=== PATIENT | female | born 1995 | race Asian ===

== ENCOUNTER 2024-12-23 00:14 | Emergency (ER) | payer MEDICAID, SELFPAY ==
[2024-12-23 00:17] VITALS: BMI 22.2
[2024-12-23 00:29] VITALS: BP 125/88; PULSE 104; RESP 20; TEMP 37.3; O2SAT 95
--- NOTE | 2024-12-23 00:32 | PD.EDRME ---
Rapid Medical Screening Exam RME Arrival date/time: 12/23/24 00:14 29 yo f present to ED for c/o nausea,vomiting, cough, weakness for 6 days I have greeted and performed a focused initial assessment of this patient. A comprehensive ED assessment and evaluation of the patient, analysis of all test results, and completion of the medical decision making process will be conducted by additional ED providers. Chief Complaint: Nausea/Vomiting/Diarrhea Time Seen by Provider: 12/23/24 00:19 Vital signs: Vital Signs Temperature 99.1 F 12/23/24 00:29 Pulse Rate 104 H 12/23/24 00:29 Respiratory Rate 20 12/23/24 00:29 Blood Pressure 125/88 H 12/23/24 00:29 Pulse Oximetry (%) 95 12/23/24 00:29 Oxygen Delivery Method Room Air 12/23/24 00:29
[2024-12-23] MEDS: MG HYD/AL HYD/SIME (Maalox Reg) SUSP 30 ML UDC PO (00:46)
[2024-12-23] MEDS: ONDANSETRON ODT 4 MG TABRAP PO (00:46)
[2024-12-23 01:11] LABS: Collection Type, Urine Voided
[2024-12-23 01:13] LABS: Basophils % (Auto) 0 % (0-2.5); Eosinophils # (Auto) 0.1 Thou/mm3 (0.0-0.5); Eosinophils % (Auto) 1 % (0-10); Hematocrit 33.7 % (36.0-46.0); Hemoglobin 10.6 g/dL (12.0-16.0); Immature Granulocytes % (Auto) 0 % (0-0); Immature Granulocytes Auto 0.05 Thou/mm3 (0.00-0.00); Lymphocytes # (Auto) 2.7 Thou/mm3 (1.0-4.8); Lymphocytes % (Auto) 21 % (10-50); Mean Corpuscular HGB Conc 31.5 g/dl (31.0-37.0); Mean Corpuscular Hemoglobin 19.3 pg (25.0-35.0); Mean Corpuscular Volume 61 fL (80-100); Monocytes # (Auto) 0.6 Thou/mm3 (0.0-0.8); Monocytes % (Auto) 4 % (0-12); Neutrophils # (Auto) 9.6 Thou/mm3 (1.8-7.7); Neutrophils % (Auto) 74 % (37-80); Nucleated Red Blood Cell % 0 /100 WBC (0); Platelet Count 326 Thou/mm3 (140-440); RDW Standard Deviation 32.3 fL (36.4-46.3); Red Blood Count 5.49 Miln/mm3 (4.00-5.20)
[2024-12-23 01:19] LABS: Bilirubin,Urine Negative (Negative); Blood,Urine Negative (Negative); Clarity,Urine Clear (Clear/Hazy); Color,Urine Yellow (Lt Yel-Yel); Glucose, Urine Negative (Negative); Hyaline Casts,Urine < 1 /hpf (0-1); Ketones,Urine 1+ (Negative); Leukocyte Esterase,Urine Negative (Negative); Nitrite,Urine Negative (Negative); Protein,Urine Trace (Neg - Trace); RBC,Urine 3 /hpf (0-3); Specific Gravity,Urine 1.023 (1.001-1.035); Squamous Epithelial Cell,Urine 5 /hpf (0-5); Urobilinogen,Urine Negative mg/dL (0.0-1.0); WBC,Urine 2 /hpf (0-5)
[2024-12-23 01:28] LABS: HCG,Qualitative Serum Positive
[2024-12-23 01:42] LABS: Strep A Rapid Negative (Negative)
[2024-12-23 01:44] LABS: Albumin, Serum 4.4 gm/dL (3.5-5.0); Albumin/Globulin Ratio 1.3 (1.2-2.2); Alkaline Phosphatase 53 U/L (46-116); Anion Gap 10 (7-16); Aspartate Amino Transferase 12 U/L (0-34); BUN/Creatinine Ratio 12 Ratio (12-20); Bilirubin,Total 0.4 mg/dL (0.3-1.2); Blood Urea Nitrogen 6 mg/dL (9-23); Calcium 9.4 mg/dL (8.3-10.6); Calcium (Corrected) 9.4 mg/dL (8.5-10.1); Carbon Dioxide 23.2 mMol/L (20.0-31.0); Chloride 104 mMol/L (98-107); Creatinine (Component) 0.5 mg/dL (0.6-1.3); Estimated Creatinine Clearance 139.8 mL/min (>60); Globulin 3.4 gm/dL (2.3-3.5); Glucose 101 mg/dL (74-106); Osmolality,Calculated 271 (275-295); Potassium 3.7 mMol/L (3.4-5.1); Sodium 137 mMol/L (136-145); Total Protein 7.8 gm/dL (5.7-8.2); eGFR > 60 See Note
[2024-12-23 01:50] LABS: Alanine Aminotransferase 8 U/L (10-49)
[2024-12-23 02:35] LABS: Path Review Blood Smear Sent to Pathologist
[2024-12-23 03:05] VITALS: BP 106/71; PULSE 74; RESP 18; TEMP 37; O2SAT 99
[2024-12-23 03:14] LABS: Mono Screen Negative (Negative)
--- NOTE | 2024-12-23 03:28 | XR_ITS ---
Examination: Complete OB ultrasound, less than 14 weeks, transabdominal Date and time of exam: December 23, 2024 0337 hrs. Indications: Vomiting beginning 6 days ago, early by history Technique: Obstetrical ultrasound images less than 14 weeks performed via transabdominal imaging Findings: A normal shaped single intrauterine gestation is present in the uterus. pole 3.4 cm corresponds to 10 weeks 2 days gestational age Cardiac motion 169 bpm Ultrasonographic survey of visible and placental structures unremarkable. Amniotic fluid volume appears appropriate for this estimated gestational age. Right ovary obscured by bowel gas Left ovary 3.3 cm arterial flow Impression: Viable intrauterine gestation 10 weeks 2 days.
[2024-12-23 04:41] LABS: Beta HCG,Quantitative 142283 mIU/mL (<5.0)
--- NOTE | 2024-12-23 04:56 | PD.EDNV ---
Nausea/Vomit./Diarrhea-RME/HPI General Chief complaint: Nausea/Vomiting/Diarrhea Stated complaint: 8 WKS PREG NV Time Seen by Provider: 12/23/24 00:19 Arrival date/time: 12/23/24 00:14 29 year old female present to emergency room with c/o nausea,vomiting cough and weakness for 6 days. pt is currently 8 weeks . LOCATION: generalized periumbical abdominal pain SEVERITY: Symptoms are described as being severe with limitations on activities of daily living QUALITY: Symptoms are described as being cramping CONTEXT: The patient is unable to identify any inciting events. DURATION/TIMING: The symptoms started approximately 6 day ago and have been constant this then, and have been progressive getting worse. ASSOCIATED SYMPTOMS: The patient is unable to identify any other associated symptoms. MODIFYING FACTORS: The patient is unable to identify any alleviating or aggravating symptoms. PERTINENT ROS: reports emesis is nonbloody, diarrhea is nonbloody, no recent foreign travel, no recent ingestion of raw seafood or meat, no head trauma, no headache, no chest pain, no orthostatis symptoms, denies any focal abdominal pain, denies any toxicological ingestions REVIEW OF SYSTEMS: See History of Present Illness - with the exception of those mentioned in the history of present illness, all other systems reviewed and reported as negative GENERAL: In general the patient is awake, interactive, in an emergency department gurney. HEAD/EYES/EARS/NOSE/THROAT: normo-cephalic, atraumatic, mucus membranes are moist, anicteric, palpebral conjunctiva is pink, trachea is midline. CARDIOVASCULAR: regular rate and regular rhythm, no murmurs, heart sounds are not distant, strong pulses in all four extremities that are equal and symmetric bilateral upper and lower extremities, normal capillary refill. CHEST/PULMONARY: normal chest rise and fall, good air movement, clear to auscultation bilaterally, normal inspiratory to expiratory ratios without evidence of respiratory distress. NECK: No midline/Paraspinal tenderness, no step off ROM/Strenght intact No Kernig and bruzinski sign. No trauma ABDOMEN: soft, not tender, no masses appreciated BACK: normal range of motion without pain. NEUROLOGICAL: cranio-facial features are symmetric, moves all four extremities equally without obvious limitations or weakness. EXTREMITY: no tenderness to palpation over the long bones or large joints of the bilateral upper and lower extremities, no joint swelling, no joint erythema, no signs of trauma, no unilateral leg swelling and no peripheral edema. SKIN: warm, dry, well-perfused, no jaundice, no rash, no telangiectasias or petechia. PSYCH: calm, cooperative, no evidence of psychosis or agitation RME / HPI RME / HPI Narrative: 12/23/24 00:14 29 yo f present to ED for c/o nausea,vomiting, cough, weakness for 6 days I have greeted and performed a focused initial assessment of this patient. A comprehensive ED assessment and evaluation of the patient, analysis of all test results, and completion of the medical decision making process will be conducted by additional ED providers. Related Data Previous Rx's ?Medication ?Instructions ?Recorded metoclopramide HCl 10 mg tablet 10 mg PO Q6H PRN nausea and 12/23/24 (Reglan) vomiting #20 tabs Allergies Allergy/AdvReac Type Severity Reaction Status Date / Time No Known Allergies Allergy Verified 12/23/24 00:20 Course Course Course Narrative: This patient presents with weakness, nausea, cough,? first trimester. DDX includes ectopic, IUP, threatened/inevitable , dehydration, mono, strep, UTI along with completed . Patient is HDS and without a history of coagulopathy or infectious symptoms. Doubt alternate acute emergent pathology. Plan: C, +/- basic labs, type and screen, TVUS, reassess Quality Measures none Orders Category Date Time Status Bedside Influenza A&B Antigen Test NOW Care 12/23/24 00:33 Completed US OB <= 14 weeks fetus Stat Exams 12/23/24 03:28 Taken Beta HCG,Quantitative Stat Lab 12/23/24 00:00 Completed CBC Stat Lab 12/23/24 00:53 Completed CMP [Comprehensive Metabolic Panel] Stat Lab 12/23/24 00:53 Completed HCG,Qualitative Serum Stat Lab 12/23/24 00:53 Completed [place] Screen Stat Lab 12/23/24 00:53 Completed Path Review Blood Smear Stat Lab 12/23/24 00:53 Completed Strep A Rapid Stat Lab 12/23/24 00:43 Completed UA [Urinalysis] Stat Lab 12/23/24 00:45 Completed Ondansetron Odt [Zofran Odt] Med 12/23/24 00:34 Discontinued 4 mg PO X1 ONE mg Hyd/Al Hyd/Lucie Susp [Maalox Susp] Med 12/23/24 00:34 Discontinued 30 ml PO X1 ONE Vital Signs Vital signs: Vital Signs Temperature 99.1 F 12/23/24 00:29 Pulse Rate 104 H 12/23/24 00:29 Respiratory Rate 20 12/23/24 00:29 Blood Pressure 125/88 H 12/23/24 00:29 Pulse Oximetry (%) 95 12/23/24 00:29 Oxygen Delivery Method Room Air 12/23/24 00:29 Nausea/Vomiting/Diarrhea Patient data External records reviewed:: [facility] previous records Clinical information provided by:: patient Social determinants that could affect healthcare access:: none Patient has the following chronic illnesses:: n/a How is presenting disease/condition affected by chronic disease/condition?: no chronic disease Evaluation data The following diagnostics were reviewed and interpreted by me:: lab results and radiology exam(s) Lab and/or radiology exams considered but not ordered:: n/a Interpretation Summary: cbc/cmp wnl strep/mono/flu negaative us: 10 weeks IUP 169 HR Medications / Prescriptions Medications / Prescriptions considered but not ordered:: n/a Medication administrations:: Medication Administration History Discontinued Medications Al Hydrox/Mg Hydrox/Simethicone (Mg Hyd/Al Hyd/Lucie (Maalox Reg) Susp 30 Ml Udc) 30 ml PO X1 ONE Stop: 12/23/24 00:35 Last Admin: 12/23/24 00:46 Dose: 30 ml Documented By: RUPERTO Ondansetron HCl (Ondansetron Odt 4 Mg Tabrap) 4 mg PO X1 ONE; Protocol Stop: 12/23/24 00:35 Last Admin: 12/23/24 00:46 Dose: 4 mg Documented By: RUPERTO as stated above Consultations Consultation(s) initiated? (list below): No Diagnosis Nausea Differential Diagnosis: gastroenteritis, dehydration and other (UTI, , URI , anemia ) Most likely diagnosis given after review of the tests above:: , URI Admission Indicated Admission indicated?: not indicated Admission Request Was there a request for admission?: No Disposition Plan Disposition Plan: Discharge Discharge Attestation Discharge Attestation: The patient and all family members were given an opportunity to ask questions and understood the discharge instructions. Discharge instructions specifically effects, indications for sooner follow up or return to the emergency department, and the expected course of current diagnosis. Patient condition: Stable Discharge Plan Plan Patient Disposition: HOME (Self Care) Prescriptions/Referrals Prescriptions/Med Rec: New metoclopramide HCl [Reglan] 10 mg tablet 10 mg PO Q6H PRN (Reason: nausea and vomiting) Qty: 20 0RF Referrals: No Primary/Family,Physician [Primary Care Provider] - In 1 week Problem List Clinical Impression: Patient/Caregiver Discharge Instructions Education Materials: First Trimester Print Language: Kittitian Stand Alone Forms: Mallorie Award Info., Patient Portal Info Letter
--- NOTE | 2024-12-23 05:37 | PRELIM_ITS ---
Obstetric ultrasound (transabdominal ) with doppler and wave doppler spectral analysis. December 23, 2024 at 0337 hours Clinical history: Abdominal pain 8 weeks . Technique: Real-time ultrasound was performed using Duplex scanning including arterial inflow, venous outflow, color and spectral Doppler analysis of both ovaries. Comparison: No prior study is available for comparison. Findings: There is an intrauterine gestation with a single live fetus of mean gestational age 10 weeks and 2 days (CRL= 3.4 cm). cardiac activity is present at heart rate of 109 beats per minute. The yolk sac is visualized. The uterus measures 9.8 x 7.6 x 10.1 cm. The right ovary was not visualized. The left ovary measures 3.3 x 1.5 x 2.0 cm and is unremarkable. Normal blood flow in the left ovary with normal wave Doppler spectral analysis. There is no free fluid in the pelvis. No abnormalities detected by Doppler. Impression: Intrauterine gestation with a single live fetus of mean gestational age 10 weeks and 2 days. Report Electronically Signed By: Juan Green 12/23/2024 5:36:23 AM [EST]
== END 2024-12-23 05:25 | disposition home or self-care (01) ==
PROVIDERS: Physician Assistant; Emergency Provider Emergency Medicine
DX: O21.9 Vomiting of pregnancy, unspecified (principal); Z3A.10 10 weeks gestation of pregnancy; O26.891 Other specified pregnancy related conditions, first trimester; Z3A.08 8 weeks gestation of pregnancy; R05.9 Cough, unspecified; R10.84 Generalized abdominal pain; R53.1 Weakness
CPT/HCPCS: 36415; 76801; 80053; 81001; 84702; 84703; 85025; 86308; 87400; 87651; 99284; Q0162; A9270

== ENCOUNTER 2025-05-23 14:27 | Outpatient (AMB) | payer MEDICAID, SELFPAY ==
[2025-05-23 14:41] VITALS: BP 116/74; PULSE 96; RESP 16; TEMP 36.6; O2SAT 98; BMI 27.3
--- NOTE | 2025-05-23 14:41 | AMB.OBINITIA ---
Vital Signs 05/23/25 14:41 Height 1.6 m Height Method Stated Weight 69.967 kg Weight Measurement Method Standing Scale BMI 27.3 BP 116/74 Blood Pressure Source Automatic Cuff Blood Pressure Location Left Upper Arm Position Sitting Respiration 16 Pulse 96 Pulse Source Monitor Temp 97.9 F Temp Source Oral Pulse Oximetry (%) 98 Oxygen Delivery Method Room Air Allergies/Home Meds Allergies & Medications Allergies No Known Allergies Allergy (Verified 05/23/25 14:42) Intake Visit Data Collection New Patient or Established: Established Patient (seen at [facility] within 3 years) Reason for Visit:: INITIAL CARE Seen by Clinical Staff ONLY (RN/MA): No Straightening Machine Feeder Required: No Do You Feel Safe at Home: Yes Authorities Contacted: N/A PCP or OBGYN visit in last 3 months: Yes Hx Now: Yes Are you currently on any form of Control: No Last menstrual period: 09/15/24 Pain Present Currently: No Pain Scale Used: Carmen-Mac/Numerical Pain scale:: 0 Smoking Status Smoking Status: Never smoker Questionnaires Covid-19 Vaccine Questionnaire Has patient been vacinated for Covid-19 Have you been vacinated for Covid-19: Yes PHQ-9 PHQ-2 Over the last 2 weeks, how often have you been bothered by any of the following problems? 1. Little interest or pleasure in doing things: not at all 2. Feeling down, depressed, or hopeless: not at all Total score: 0 PHQ-9 3. Trouble falling or staying asleep, or sleeping too much: Not at all 4. Feeling tired or having little energy: Not at all 5. Poor appetite or overeating: Not at all 6. Feeling bad about yourself - or that you are a failure or have let yourself or your family down: Not at all 7. Trouble concentrating on things, such as reading the newspaper or watching television: Not at all 8. Moving or speaking so slowly that other people could have noticed? - Or the opposite - being so fidgety or restless that you have been moving around a lot more than usual: not at all 9. Thoughts that you would be better off or of hurting yourself in some way: Not at all Total score: 0 Source: Developed by Drs. Mark Neal, Aletha B.W. Eitan Hernandez and colleagues, with an educational [place] from [employer]. Depression screen completed yes Social History Living Situation History Marital Status: Lives With: Family Housing: House Tobacco History Smoking Status: Never smoker Second Hand Smoke Exposure: No Alcohol History Alcohol Intake: Never Domestic Abuse History Do You Feel Safe at Home: Yes OB Initial Visit Menstrual History Menstrual reliability: definite Flow: normal Menstrual regularity: irregular Monthly: No Age at menarche: 20 On control pills at conception: No OB History : 2 Para: 1 # of Living Children: 1 Delivery History 1st : Child's name: SOFYA date: 05[birth year]02[birth year] sex: male Gestational age at delivery (weeks): 40 Delivery type: Delivery complications: NONE History of depression before or after : No Infection History & Risk Evaluation History of STDs: none Genetic Screening & History Genetic Screening/Teratology Counseling - Includes patient, baby's father, or anyone in either family with: 1. Patient's age 35 years or older as of estimated date of delivery: No 2. Thalassemia (German, Azeri, Mediterranean, or Background); MCV less than 80: No 3. Neural Tube Defect (Meningomyelocele, Spina Bifida, or Anencephaly): No 4. Congenital Heart Defect: No 5. Down Syndrome: No 6. Marciano-Sachs (Ashkenazi Pentecostal, Cajun, German [place]): No 7. Marilyn Disease (Ashkenazi Pentecostal): No 8. Familial Dysautonomia (Ashkenazi Pentecostal): No 9. Sickle Cell Disease or Trait (): No 10. Hemophilia or other blood disorders: No 11. Muscular Dystrophy: No 12. Cystic Fibrosis: No 13. Luisa's Chorea: No 14. Mental Retardation/Autism: No 15. Other inherited genetic or chromosomal disorder: No 16. Maternal Metabolic Disorder (EG,TYPE 1 Diabetes, PKU): No 17. Patient or baby's father had a child with defects not listed above: No 18. Recurrent loss or a stillbirth: No 19. Medications (including supplements, vitamins, herbs or otc drugs)/illicit/recreational drugs/alcohol since last menstrual period: No 20. Any other: No Infection History 1. Live with someone with TB or exposed to TB: No 2. Rash or viral illness since last menstrual period: No 3. Hepatitis B,C: No Other (see comments) Source: [employer] Office Procedures OB Clinic LOC & Office Proc's Nursing/Assessment Patient Status: Established Patient OB Clinic Nursing Assessment: Medication Reconciliation, Update PMH in EMR and Vital Signs OB Clinic Coordination of Care: Complex Care and Chronic Disease 1-5, Consent,records obtained, informed consent, Education Simp Pt/Fam, 1 Ins Authorization, Lab and Imaging orders, Results/Orders obtained and Staff clarify orders Special Needs: Heart tones Established Patient Charge Established Patient Point Assignment: 150 Established Patient Point Charge: EP Level 4 (120-155) Assessment & Plan Diagnosis / Problem List (1) Maternal care for low transverse scar from previous delivery: Status: Acute (2) Supervision of high risk , unspecified, third trimester: Status: Acute
== END 2025-05-23 14:52 | disposition home or self-care (01) ==
LOC: HODSOBC 14:27
PROVIDERS: Supervising Provider Obstetrics & Gynecology; Visit Provider Obstetrics & Gynecology
DX: O09.293 Supervision of pregnancy with other poor reproductive or obstetric history, third trimester (principal); O34.211 Maternal care for low transverse scar from previous cesarean delivery; Z3A.00 Weeks of gestation of pregnancy not specified
CPT/HCPCS: 99214; G0463